=== PATIENT | female | born 1955 | race Two or more races ===

== ENCOUNTER 2017-11-14 18:04 | Emergency (ER) | payer MEDICAID ==
[~2017-11-14] VITALS: Ht 165.1 cm; Wt 117.9 kg
[~2017-11-14 18:04] MED LIST: ALBUAER3 IN; BECL40AE10 IN; CHOL20007 PO; INSLANTI SC; LISI-275 PO; LOSA-46 PO; MONT10TA23 PO; SIMV-13 PO
[2017-11-14 18:45] VITALS: BP 148/71
[2017-11-14] MEDS ORDERED: MAGNESIUM SULFATE 1GM/100ML 100 ML IV ONE (19:00)
[2017-11-14] MEDS ORDERED: methylPREDNISolone SOD SUCC 125 MG/2 ML VL IV ONE (19:00)
[2017-11-14] MEDS ORDERED: cefTRIAXone 1GM/10ml IVPUSH 10 ML IV ONE (19:00)
[2017-11-14] MEDS ORDERED: IPRATROPIUM BROM 0.5 MG/2.5ML INH SOL NEB ONE (19:00)
[2017-11-14] MEDS ORDERED: ALBUTEROL SULF 2.5 MG/0.5ML(0.5%) NEB SOLN NEB ONE (19:00)
[2017-11-14] MEDS ORDERED: InsuLIN REG 1unit/0.01ml Soln (100units/ml) IV ONE (19:15)
[2017-11-14] MEDS ORDERED: SODIUM CHLORIDE 0.9% 1,000 ML IV ONE (19:15)
[2017-11-14 19:36] LABS: Basophils # (auto) 0 uL; Basophils % (auto) 0.3 % (0.0-2.0); Eosinophils # (auto) 0.8 uL; Eosinophils % (auto) 5.2 % (0.0-7.0); Hematocrit 37.9 % (36.0-46.0); Hemoglobin 12.4 g/dL (12.2-16.2); Lymphocytes # (auto) 3.5 uL; Lymphocytes % (auto) 22.8 % (10.0-50.0); Mean Corpuscular Hgb Conc. 32.7 g/dL (32.0-36.0); Mean Corpuscular Volume 91.6 fL (80.0-100.0); Monocytes # (auto) 1.7 uL; Monocytes % (auto) 11.5 % (0.0-12.0); Neutrophils # (auto) 9.2 uL; Neutrophils % (auto) 60.2 % (37.0-80.0); Nucleated Red Blood Cells % 0.4 %; Platelet Count (auto) 294 10^3/uL (140-450); Red Blood Cells 4.13 10^6/uL (4.0-5.20); Red Cell Distribution Width 13.5 % (11.8-14.3); White Blood Cell 15.2 10^3/uL (4.4-10.8)
[2017-11-14 19:50] LABS: Alanine Aminotransferase 25 U/L (13-56); Albumin 3.1 g/dL (3.4-5.0); Anion Gap 10 (5-15); Aspartate Aminotransferase 23 U/L (15-37); BUN/Creatinine Ratio 13.3; Blood Urea Nitrogen 22 mg/dL (7-18); Carbon Dioxide 25 mmol/L (21-32); Chloride 103 mmol/L (98-107); GFR African American 40 mL/min; GFR Non-African American 33 mL/min; Glucose 387 mg/dL (74-106); Potassium 3.8 mmol/L (3.5-5.1); Sodium 138 mmol/L (136-145)
[2017-11-14 19:54] LABS: Alkaline Phosphatase 64 U/L (45-117); Bilirubin, Total 0.3 mg/dL (0.2-1.0); Total Protein 8.1 g/dL (6.4-8.2)
== END 2017-11-14 22:34 | disposition home or self-care (01) ==
LOC: ER 18:04
DX: J45.901 Unspecified asthma with (acute) exacerbation (principal); E86.0 Dehydration; E11.65 Type 2 diabetes mellitus with hyperglycemia; E78.5 Hyperlipidemia, unspecified; I10 Essential (primary) hypertension
CPT/HCPCS: 36415; 71045; 80053; 82962; 84484; 85025; 93005; 96365; 96366; 96375; 99285; J0696; J1815; J2930; J3475; J7030; J7611; J7644